=== PATIENT | female | born 1955 | race African-American/Black ===

== ENCOUNTER 2017-03-23 11:29 | Emergency (ER) | payer OTHER ==
[~2017-03-23] VITALS: Ht 162.6 cm; Wt 107.0 kg
[2017-03-23 11:32] VITALS: BP 168/76
[2017-03-23] MEDS ORDERED: LISI-604 PO (11:38)
[2017-03-23] MEDS ORDERED: METO25TA6 PO (11:38)
[2017-03-23] MEDS ORDERED: ASPI-1035 PO (11:38)
[2017-03-23] MEDS ORDERED: POTA10TA15 PO (11:38)
[2017-03-23] MEDS ORDERED: METF500T4 PO (11:38)
[2017-03-23] MEDS ORDERED: ATOR10TA PO (11:38)
[2017-03-23] MEDS ORDERED: CHOL100046 PO (11:38)
[2017-03-23] MEDS ORDERED: FURO-152 PO (11:38)
== END 2017-03-23 14:44 | disposition left against medical advice (07) ==
LOC: ER 13:35
DX: N64.4 Mastodynia (principal); Z53.21 Procedure and treatment not carried out due to patient leaving prior to being seen by health care provider

== ENCOUNTER 2017-05-24 12:56 | Emergency (ER) | payer MEDICAID, OTHER ==
[~2017-05-24] VITALS: Ht 162.6 cm; Wt 107.0 kg
[~2017-05-24 12:56] MED LIST: ASPI-1159 PO; ATOR10TA PO; CHOL100046 PO; FURO-152 PO; LISI-604 PO; METF500T4 PO; METO25TA6 PO; POTA10TA15 PO
[2017-05-24 14:02] VITALS: BP 112/66
== END 2017-05-24 23:15 | disposition home or self-care (01) ==
LOC: ER 23:10
DX: N64.4 Mastodynia (principal); N60.02 Solitary cyst of left breast; Z88.2 Allergy status to sulfonamides; I10 Essential (primary) hypertension; E11.9 Type 2 diabetes mellitus without complications; I25.2 Old myocardial infarction; Z95.1 Presence of aortocoronary bypass graft; Z72.0 Tobacco use
CPT/HCPCS: 99283

== ENCOUNTER 2021-06-16 16:05 | Inpatient (IN) | payer BC ==
[~2021-06-16] VITALS: Ht 162.6 cm; Wt 104.3 kg
[~2021-06-16 16:05] MED LIST changes: -ASPI-1159 PO; +ASPI-1497 PO; -LISI-604 PO; +LISI20TA31 PO; +METF-414 PO; -METF500T4 PO; +ONDA4TAB11 PO; +TAMS-11 MT
[2021-06-16] MEDS ORDERED: ASPIRIN 325MG EC TABLET PO ONE (17:00)
[2021-06-16 18:19] LABS: BASOPHILS % 0.7 % (0.0-2.0); EOSINOPHILS % 1.1 % (0.0-5.0); HEMATOCRIT. 40.8 % (36.0-48.0); HEMOGLOBIN. 13.6 g/dL (12.0-16.0); LYMPHOCYTES % 15.4 % (20.0-50.0); MEAN CORPUSCULAR HEMOGLOBIN 28.9 pg (28.0-32.0); MEAN CORPUSCULAR VOLUME 86.9 fL (81.0-99.0); MEAN PLATELET VOLUME 10.2 fl (7.4-10.4); MONOCYTES % 6.7 % (2.0-8.0); NEUTROPHILS % 76.1 % (40.0-76.0); PLATELET 346 x1000/uL (130-400); RED CELL DISTRIBUTION WIDTH 14.4 % (11.6-14.6)
[2021-06-16 18:26] LABS: CHLORIDE 112 mEq/L (98-107)
[2021-06-16] MEDS: NITROGLYCERIN OINT 1GM/INCH UDPKT TD SCH (21:54)
[2021-06-16 22:30] VITALS: BP 100/56
[2021-06-17] VITALS (13 sets, daily range): BP systolic 94–153; BP diastolic 40–84
[2021-06-17] MEDS ORDERED: DEXT 5%/0.9% NACL 1,000 ML IV SCH
[2021-06-17] MEDS ORDERED: ONDANSETRON HCL 4MG/2ML INJ IV PRN
[2021-06-17] MEDS ORDERED: ACETAMINOPHEN 650MG/20.3ML UDC PO PRN
[2021-06-17] MEDS: PIPERACILLIN/TAZOBACTAM 3.375G in DEXT 5% WATER 50ML IV SCH ×4 (05:37→21:32)
[2021-06-17] MEDS ORDERED: PIPERACILLIN/TAZOBACTAM 3.375 G/VIAL IV SCH (06:00)
[2021-06-17] MEDS: NITROGLYCERIN OINT 1GM/INCH UDPKT TD SCH ×3 (06:00→22:38)
[2021-06-17 06:57] LABS: BASOPHILS % 0.3 % (0.0-2.0); EOSINOPHILS % 1.5 % (0.0-5.0); HEMOGLOBIN. 12.3 g/dL (12.0-16.0); MEAN CORPUSCULAR HEMOGLOBIN 28.9 pg (28.0-32.0); MEAN CORPUSCULAR VOLUME 86.9 fL (81.0-99.0); MEAN PLATELET VOLUME 9.6 fl (7.4-10.4); MONOCYTES % 7.3 % (2.0-8.0); NEUTROPHILS % 76.9 % (40.0-76.0); PLATELET 277 x1000/uL (130-400); RED BLOOD CELL COUNT 4.26 mill/uL (4.2-5.4); RED CELL DISTRIBUTION WIDTH 14.1 % (11.6-14.6)
[2021-06-17 07:14] LABS: CHLORIDE 112 mEq/L (98-107)
[2021-06-17] MEDS ORDERED: PANTOPRAZOLE 40MG DR TABLET PO SCH (09:00)
[2021-06-17] MEDS ORDERED: ASPIRIN 81MG TABLET PO SCH (09:00)
[2021-06-17] MEDS ORDERED: NALOXONE HCL 0.4MG/ML VIAL IV PRN (09:30)
[2021-06-17] MEDS: SODIUM CHLORIDE 0.45% 1,000 ML IV SCH ×2 (11:37→23:30)
[2021-06-17] MEDS ORDERED: FENTANYL CITRATE/PF 50MCG/ML 2ML VIAL ONE ×2 (12:47→13:32)
[2021-06-17] MEDS ORDERED: MIDAZOLAM HCL 2 MG/2 ML VIAL ONE ×2 (12:47→13:32)
[2021-06-17] MEDS ORDERED: IODIXANOL 320MG/ML 200ML BOTTLE ONE (12:48)
[2021-06-17] MEDS ORDERED: LIDOCAINE HCL 1% 20ML VIAL (Pyxis) INJ ONE (12:48)
[2021-06-17] MEDS ORDERED: IODIXANOL 320MG/ML 100 ML BOTTLE IV ONE (12:49)
[2021-06-17] MEDS ORDERED: ATROPINE SULFATE 1MG/10ML SYR IV PRN (14:00)
[2021-06-17] MEDS ORDERED: ACETAMINOPHEN 325MG TABLET PO PRN (14:00)
[2021-06-17] MEDS: HYDROCODONE/ACETAMINOPHEN 5/325MG TABLET PO PRN ×2 (15:06→21:31)
[2021-06-17] MEDS ORDERED: METOPROLOL TARTRATE 25MG TABLET PO SCH (21:00)
[2021-06-17] MEDS ORDERED: ATORVASTATIN CALCIUM 40MG TABLET PO SCH (21:00)
[2021-06-18] VITALS: BP 103/51
[2021-06-18 02:00] VITALS: BP 104/44
[2021-06-18] MEDS: PIPERACILLIN/TAZOBACTAM 3.375G in DEXT 5% WATER 50ML IV SCH ×2 (02:45→06:58)
[2021-06-18 04:00] VITALS: BP 95/31
[2021-06-18] MEDS: NITROGLYCERIN OINT 1GM/INCH UDPKT TD SCH (06:10)
[2021-06-18 07:15] LABS: BASOPHILS % 0.2 % (0.0-2.0); EOSINOPHILS % 1.4 % (0.0-5.0); HEMATOCRIT. 33.7 % (36.0-48.0); HEMOGLOBIN. 11.3 g/dL (12.0-16.0); LYMPHOCYTES % 16.1 % (20.0-50.0); MEAN CORPUSCULAR HEMOGLOBIN 28.9 pg (28.0-32.0); MEAN CORPUSCULAR VOLUME 86.3 fL (81.0-99.0); MEAN PLATELET VOLUME 9.7 fl (7.4-10.4); MONOCYTES % 8.4 % (2.0-8.0); NEUTROPHILS % 73.9 % (40.0-76.0); PLATELET 256 x1000/uL (130-400); RED CELL DISTRIBUTION WIDTH 14.7 % (11.6-14.6)
== END 2021-06-18 08:23 | disposition left against medical advice (07) | DRG 287 ==
LOC: ER 16:05 → EDBEDREQTM 20:12 → EDBEDREQ 20:12 → ENRESERV 20:30 → 6WST 22:29 → 3WST 06-17 14:51
PROVIDERS: ADMIT Internal Medicine; ATTEND Internal Medicine
PROC: 4A023N7 Measurement of Cardiac Sampling and Pressure, Left Heart, Percutaneous Approach (ICD-10-PCS; principal; 2021-06-17)
PROC: B213YZZ Fluoroscopy of Multiple Coronary Artery Bypass Grafts using Other Contrast (ICD-10-PCS; 2021-06-17)
PROC: B218YZZ Fluoroscopy of Left Internal Mammary Bypass Graft using Other Contrast (ICD-10-PCS; 2021-06-17)
PROC: B211YZZ Fluoroscopy of Multiple Coronary Arteries using Other Contrast (ICD-10-PCS; 2021-06-17)
PROC: B215YZZ Fluoroscopy of Left Heart using Other Contrast (ICD-10-PCS; 2021-06-17)
DX: T82.858A Stenosis of other vascular prosthetic devices, implants and grafts, initial encounter (principal); I25.110 Atherosclerotic heart disease of native coronary artery with unstable angina pectoris; E11.9 Type 2 diabetes mellitus without complications; E78.5 Hyperlipidemia, unspecified; N20.0 Calculus of kidney; F17.210 Nicotine dependence, cigarettes, uncomplicated; I11.9 Hypertensive heart disease without heart failure; M48.061 Spinal stenosis, lumbar region without neurogenic claudication; Z53.29 Procedure and treatment not carried out because of patient's decision for other reasons; E66.9 Obesity, unspecified; Y83.2 Surgical operation with anastomosis, bypass or graft as the cause of abnormal reaction of the patient, or of later complication, without mention of misadventure at the time of the procedure; I25.2 Old myocardial infarction; Z87.442 Personal history of urinary calculi; Z71.6 Tobacco abuse counseling; Z88.2 Allergy status to sulfonamides; Z79.899 Other long term (current) drug therapy; Z68.39 Body mass index [BMI] 39.0-39.9, adult; Y92.89 Other specified places as the place of occurrence of the external cause
CPT/HCPCS: 36415; 71045; 80048; 80053; 80076; 83880; 84484; 85025; 93005; 93306; 93459; 99285; C1760; C1769; C1887; C1893; J1644; J2250; J2543; J3010; J3490; J7060; Q9967